=== PATIENT | male | born 1985 | race Caucasian/White ===

== ENCOUNTER → 2020-12-26 08:30 | Outpatient (CLI) | payer OTHER, SELFPAY ==
[2020-12-22 11:18] VITALS: BMI 53.8
--- NOTE | 2020-12-26 15:30 | PFTCOMP_ITS ---
COMPLETE PULMONARY FUNCTION TEST INTERPRETATION Brief HPI: Patient is a 35 year old male, currently under the care of myself, who presents to [facility] for complete pulmonary function tests secondary to diagnosis of hypoxia status post COVID-19. Respiratory therapist reports good effort and reproducible results. Interpretation: Forced expiration spirometry shows a severe large airways obstructive ventilatory defect with an FEV1 of 35% predicted. There is no significant bronchodilator response in FVC and FEV1 by strict ATS criteria. Spirograms are of poor quality, showing exhalation for only 3 seconds, likely underestimating FVC. The respiratory flow volume loop shows decreased expiratory flow rates at all lung volumes consistent with airway obstruction. Lung volumes by body plethysmography show a decreased total lung capacity at 4.53 L, 62% predicted. FRC and RV are elevated out of proportion. Lung volume measurements are consistent with air-trapping. Diffusion capacity by carbon monoxide is decreased at 34% predicted. The airway resistance is normal. No previous pulmonary function tests were available for review. Impression: Irreversible very severe mixed ventilatory defect with a symmetric reduction diffusion capacity
== END ==
PROVIDERS: PCP Family Medicine; Referring Provider Internal Medicine Critical Care Medicine; Visit Provider Internal Medicine Critical Care Medicine
DX: J96.91 Respiratory failure, unspecified with hypoxia (principal)
CPT/HCPCS: 94060; 94726; 94729

== ENCOUNTER → 2020-12-29 12:42 | Outpatient (CLI) | payer OTHER, SELFPAY ==
[2020-12-22 11:18] VITALS: BMI 53.8
--- NOTE | 2020-12-29 12:46 | ECHOCS_ITS ---
Reason For Study: PHTN Procedure This was a 2D Doppler, Color Flow transthoracic echocardiogram. The study was technically difficult. Due to body habitus. Contrast injection was performed. Exam performed in department. Left Ventricle Normal left ventricle. Moderate concentric left ventricular hypertrophy. Left ventricular systolic function is normal. The estimated ejection fraction is 60 %. Normal diastology for age. No regional wall motion abnormalities noted. Right Ventricle Normal RV size. Normal systolic function. Atria Normal left atrium. Normal right atrium. Mitral Valve Normal mitral valve. Aortic Valve Normal aortic valve. Pulmonic Valve The pulmonic valve is not well visualized. Great Vessels Normal aortic root. The pulmonary artery is normal size. Normal inferior vena cava. Pericardium/Pleural No pericardial effusion. Medication 22 gauge I.V. with prn adaptor inserted into right arm. Diluted definity 4.0ml given slow IV push to enhance endocardial definition. MMode/2D Measurements & Calculations LVIDd: 4.4 cm IVSd: 1.4 cm Ao root diam: 3.2 cm LVIDs: 3.1 cm LVPWd: 1.4 cm RVDd: 3.7 cm FS: 28.7 % LAV(MOD-bp): 58.7 ml LVAd ap4: 38.9 cm2 LVAd ap2: 32.9 cm2 LAV(MOD-bp) Indexed: 20.3 ml/m2 LVLd ap4: 9.3 cm LVLd ap2: 9.7 cm LAV(MOD-sp2): 56.5 ml EDV(MOD-sp4): 133.0 ml EDV(MOD-sp2): 90.2 ml LAV(MOD-sp4): 55.1 ml EDV(sp4-el): 138.2 ml EDV(sp2-el): 94.7 ml LVAs ap4: 19.4 cm2 LVAs ap2: 16.5 cm2 LVLs ap4: 8.1 cm LVLs ap2: 8.7 cm ESV(MOD-sp4): 37.9 ml ESV(MOD-sp2): 25.6 ml ESV(sp4-el): 39.2 ml ESV(sp2-el): 26.7 ml EF(MOD-sp4): 71.5 % EF(MOD-sp2): 71.6 % EF(sp4-el): 71.6 % SV(MOD-sp4): 95.2 ml SV(MOD-sp2): 64.6 ml SV(sp4-el): 99.0 ml LA dimension(2D): 4.6 cm LA A4 area: 20.9 cm2 RA A4 area: 13.8 cm2 Doppler Measurements & Calculations MV E max vivek: 105.6 cm/sec Lat Peak E' Vivek: 12.8 cm/sec Med Peak E' Vivek: 11.2 cm/sec MV A max vivek: 88.2 cm/sec E/E' lat: 8.2 E/E' med: 9.4 MV E/A: 1.2 Ao V2 max: 217.8 cm/sec LV V1 max: 159.7 cm/sec PA V2 max: 135.1 cm/sec Ao max P.0 mmHg LV V1 max P.2 mmHg Ao V2 mean: 171.2 cm/sec LV V1 mean P.4 mmHg Ao mean P.4 mmHg LV V1 mean: 122.8 cm/sec Ao V2 VTI: 39.2 cm LV V1 VTI: 28.4 cm ECHO/Echo Complete W/ Contrast Interpretation Summary Normal left ventricle. Moderate concentric left ventricular hypertrophy. Left ventricular systolic function is normal. The estimated ejection fraction is 60 %. Contrast injection was performed. Ordering Physician: Bhupinder Hoskins Referring Physician: Dl Lyon Performed By: Blanche Lezama, SHERIF, RVT
== END ==
PROVIDERS: PCP Family Medicine; Referring Provider Internal Medicine Critical Care Medicine; Visit Provider Internal Medicine Critical Care Medicine
DX: I27.20 Pulmonary hypertension, unspecified (principal); R60.9 Edema, unspecified; J96.91 Respiratory failure, unspecified with hypoxia
CPT/HCPCS: 93306; Q9957; A4216; C8929; J3490

== ENCOUNTER → 2021-01-03 20:03 | Outpatient (CLI) | payer OTHER, SELFPAY ==
[2020-12-22 11:18] VITALS: BMI 53.8
== END ==
PROVIDERS: PCP Family Medicine; Referring Provider Internal Medicine Critical Care Medicine; Visit Provider Internal Medicine Critical Care Medicine
DX: G47.10 Hypersomnia, unspecified (principal)
CPT/HCPCS: 95810

== ENCOUNTER → 2021-03-07 12:11 | Outpatient (CLI) | payer OTHER, SELFPAY ==
[2020-12-22 11:18] VITALS: BMI 53.8
[2021-03-07 12:36] VITALS: PULSE 101; PULSE 102; PULSE 85; PULSE 92; PULSE 99; O2SAT 90; O2SAT 91; O2SAT 92; O2SAT 93; O2SAT 95; O2SAT 96
--- NOTE | 2021-03-07 16:29 | PCM.PSN.6M ---
PSN 6 Minute Walk Test 6 Minute Walk Test 6 Minute Walk Test: 6 Minute Walk Test PSN:6-Minute Walk Test Start: 03/07/21 12:36 Freq: Status: Active Protocol: [id number].[id number] Document 03/07/21 12:36 MAURICIO (Rec: 03/07/21 12:38 MAURICIO [id number]) 6 Minute Walk Test Date Performed 03/07/21 Time Performed 12:15 Height 6 ft 1 in Weight: 166.015 kg Weight in Pounds [address]: Bhupinder Hosknis Assistive device used: None Pre-test Oxygen Delivery Method Room Air Pulse Ox (%) 96 Pulse Rate (60-100 beats/min) 92 Dyspnea Diya Scale (0-10) 0 Exertion Diya Scale (6-20) 6 1st minute Oxygen Delivery Method Room Air Pulse Ox (%) 92 Pulse Rate (60-100 beats/min) 99 2nd minute Oxygen Delivery Method Room Air Pulse Ox (%) 90 Pulse Rate (60-100 beats/min) 99 3rd minute Oxygen Delivery Method Room Air Pulse Ox (%) 93 Pulse Rate (60-100 beats/min) 101 H 4th minute Oxygen Delivery Method Room Air Pulse Ox (%) 91 Pulse Rate (60-100 beats/min) 102 H 5th minute Oxygen Delivery Method Room Air Pulse Ox (%) 95 Pulse Rate (60-100 beats/min) 101 H 6th minute Oxygen Delivery Method Room Air Pulse Ox (%) 93 Pulse Rate (60-100 beats/min) 102 H Dyspnea Diya Scale (0-10) 2 Exertion Diya Scale (6-20) 11 Post-test Oxygen Delivery Method Room Air Pulse Ox (%) 95 Pulse Rate (60-100 beats/min) 85 Full Laps Walked 16 Partial Lap, Number of Tiles Walked 15 Total Distance Walked (ft) 959 Interpretation Interpretation: The patient was noted to be 96% on room air, but desaturated to 90% with ambulation. The patient did reach a peak heart rate of 102 bpm. In total, the patient traveled 959 feet over the course of 6 minutes on room air with no assistive devices or breaks. These findings are consistent with a respiratory limitation exercise tolerance. Recommendations Recommendations: No supplemental oxygen is indicated at this time. However, patient will need to be followed closely given level of desaturation.
== END ==
PROVIDERS: PCP Family Medicine; Referring Provider Internal Medicine Critical Care Medicine; Visit Provider Internal Medicine Critical Care Medicine
DX: J96.91 Respiratory failure, unspecified with hypoxia (principal)
CPT/HCPCS: 94618